=== PATIENT | male | born 2000 | race Caucasian/White ===

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

== ENCOUNTER 2019-07-29 12:03 | Emergency (ER) | payer OTHER ==
[~2019-07-29] VITALS: Ht 177.8 cm; Wt 74.8 kg
[2019-07-29 12:07] VITALS: BP 109/74; Ht 177.8 cm; Wt 74.8 kg
== END 2019-07-29 12:45 | disposition home or self-care (01) ==
LOC: ED 12:03
DX: S01.81XA Laceration without foreign body of other part of head, initial encounter (principal); G43.909 Migraine, unspecified, not intractable, without status migrainosus; W22.8XXA Striking against or struck by other objects, initial encounter; Y93.89 Activity, other specified; Y92.090 Kitchen in other non-institutional residence as the place of occurrence of the external cause; Y99.8 Other external cause status
CPT/HCPCS: 90715

== ENCOUNTER 2019-08-10 06:43 | Emergency (ER) | payer OTHER ==
[~2019-08-10] VITALS: Ht 175.3 cm; Wt 79.4 kg
[2019-08-10 06:59] VITALS: Ht 175.3 cm; Wt 79.4 kg
[2019-08-10 08:20] VITALS: BP 115/73
== END 2019-08-10 08:20 | disposition home or self-care (01) ==
LOC: ED 06:43
DX: G40.909 Epilepsy, unspecified, not intractable, without status epilepticus (principal); G43.909 Migraine, unspecified, not intractable, without status migrainosus